=== PATIENT | female | born 1985 | race Caucasian/White ===

== ENCOUNTER 2017-03-10 12:07 | Emergency (ER) | payer OTHER ==
[~2017-03-10] VITALS: Ht 160 cm; Wt 93.9 kg
--- NOTE | 2017-03-10 12:10 | NUR ---
chaperoned md with pelvicexam.
== END 2017-03-10 12:33 | disposition home or self-care (01) ==
LOC: ER 12:10
DX: N75.0 Cyst of Bartholin's gland (principal); F17.200 Nicotine dependence, unspecified, uncomplicated
CPT/HCPCS: 99283; A4663

== ENCOUNTER 2017-06-01 17:14 | Emergency (ER) | payer OTHER ==
[~2017-06-01] VITALS: Ht 154.9 cm; Wt 93.9 kg
--- NOTE | 2017-06-01 17:25 | NUR ---
PATIENT WAS MSE BY DR MICHAEL ROOM 02A. PATIENT A & O X4.
--- NOTE | 2017-06-01 17:40 | NUR ---
Patient discharged to home in stable conditon. Written and verbal after care instructions given. Patient verbalizes understanding of instructions.
[2017-06-01 17:41] VITALS: BP 127/87
== END 2017-06-01 17:43 | disposition home or self-care (01) ==
LOC: ER 17:15
DX: R19.7 Diarrhea, unspecified (principal); F17.200 Nicotine dependence, unspecified, uncomplicated
CPT/HCPCS: A4663

== ENCOUNTER 2017-06-07 13:28 | Emergency (ER) | payer OTHER ==
[~2017-06-07] VITALS: Ht 154.9 cm; Wt 90.7 kg
--- NOTE | 2017-06-07 14:48 | NUR ---
Stool specimen obtained and brought to lab.
[2017-06-07] MEDS ORDERED: SUMATRIPTAN SUCCINATE 6 MG/0.5 ML VIAL SQ ONE (14:49)
--- NOTE | 2017-06-07 14:55 | NUR ---
Patient discharged to home in stable conditon. Written and verbal after care instructions given. Patient verbalizes understanding of instructions. Stressed follow up with pmd or return to ER for worsening s/s.
== END 2017-06-07 14:59 | disposition home or self-care (01) ==
LOC: ER 13:31
DX: K52.9 Noninfective gastroenteritis and colitis, unspecified (principal); F17.200 Nicotine dependence, unspecified, uncomplicated
CPT/HCPCS: 86625; 87046; 89055; A4663; J3030

== ENCOUNTER 2017-10-10 22:08 | Emergency (ER) | payer OTHER ==
[~2017-10-10] VITALS: Ht 160 cm; Wt 99.8 kg
--- NOTE | 2017-10-10 22:40 | NUR ---
Dr. Dumont at bedside for MSE.
[2017-10-10] MEDS ORDERED: HYDROCODONE/APAP 10-325 MG TABLET ONE (23:22)
[2017-10-10] MEDS ORDERED: HYDROCODONE/APAP 10-325 MG TABLET PO ONE (23:30)
--- NOTE | 2017-10-10 23:50 | NUR ---
Patient discharged to home in stable conditon. Written and verbal after care instructions given. Patient verbalizes understanding of instructions. Patient ambulated out of ER with crutches, gait training provided, VSS, all belongings taken, no acute signs of distress.
[2017-10-10 23:51] VITALS: BP 114/73
== END 2017-10-10 23:40 | disposition home or self-care (01) ==
LOC: ER 22:10
DX: S92.401A Displaced unspecified fracture of right great toe, initial encounter for closed fracture (principal); F17.210 Nicotine dependence, cigarettes, uncomplicated; F12.10 Cannabis abuse, uncomplicated; W20.8XXA Other cause of strike by thrown, projected or falling object, initial encounter; Y93.89 Activity, other specified; Y92.89 Other specified places as the place of occurrence of the external cause; Y99.8 Other external cause status
CPT/HCPCS: 73630; 99284; A4663

== ENCOUNTER 2017-10-28 01:24 | Emergency (ER) | payer OTHER ==
[~2017-10-28] VITALS: Ht 160 cm; Wt 99.8 kg
--- NOTE | 2017-10-28 03:01 | NUR ---
Patient discharged to home in stable conditon. Written and verbal after care instructions given. Patient verbalizes understanding of instructions.
[2017-10-28 03:02] VITALS: BP 128/91
== END 2017-10-28 03:03 | disposition home or self-care (01) ==
LOC: ER 01:27
DX: H60.91 Unspecified otitis externa, right ear (principal); F12.10 Cannabis abuse, uncomplicated
CPT/HCPCS: A4663

== ENCOUNTER 2017-10-28 16:42 | Emergency (ER) | payer OTHER ==
[~2017-10-28] VITALS: Ht 160 cm; Wt 99.8 kg
--- NOTE | 2017-10-28 16:58 | NUR ---
RECEIVED A 31 Y/O FEMALE PT C/O RT EAR PAIN DESCRIBING IT A SHARP PAIN 01/27. PT AWAITING TO BE SEEN BY .
--- NOTE | 2017-10-28 17:15 | NUR ---
SEEN BY DR CARRANZA ORDERED FOR PTS DISCHARGE, PRESCRIPTION AND DISCHARGE INSTRUCTIONS GIVEN. PATIENT DISCHARGED WITH FAMILY MEMEBER.
== END 2017-10-28 17:16 | disposition home or self-care (01) ==
LOC: ER 16:43
DX: H60.91 Unspecified otitis externa, right ear (principal); F12.10 Cannabis abuse, uncomplicated
CPT/HCPCS: A4663